=== PATIENT | male | born 1940 | race Caucasian/White ===

== ENCOUNTER 2017-03-17 11:47 | Inpatient (IN) | payer MEDICARE, OTHER ==
--- NOTE | 2017-03-17 12:59 | ED Physician Documentation ---
PD HPI DYSPNEA - Stated complaint Stated Complaint: SOA - Chief complaint Chief Complaint: Resp - History obtained from History obtained from: Patient - History of Present Illness Timing - onset: How many days ago (few) Timing - onset during: Light activity Timing - duration: Days (few) Timing - details: Gradual onset, Still present Inciting event(s): URI (cough, congestion and progressive dyspnea. No noted pedal edema. He had some CHF with congestion and seen at [facility] ED, with some treatment there and discharged to SNF Rehab. He says he felt really good there, with good activity level and breathing. Discharged about a week ago and has had progressive dyspnea. He is from , so has been living in small boat and his truck, and not sleeping well. He had prior history of needing CPAP at night, but stopped it 2-3 years ago and does not have machine still. Does not use home oxygen. Notes from ED [facility] showed adequate sats at 94-96% RA.) Associated symptoms: Cough, Wheezing, Bilateral edema (minimal). No: Fever, Chest pain / discomfort, Palpitations, Diaphoresis Recently seen: Emergency Dept (about a month ago in [facility].) Review of Systems Constitutional: reports: Myalgias, Fatigue. denies: Fever, Chills Nose: reports: Congestion Throat: denies: Sore throat Cardiac: denies: Chest pain / pressure, Palpitations Respiratory: reports: Dyspnea, Cough GI: reports: Nausea, Vomiting, Diarrhea : denies: Dysuria, Frequency Skin: denies: Rash, Lesions Neurologic: reports: Generalized weakness. denies: Focal weakness, Numbness, Near syncope, Headache, Head injury Psychiatric: reports: Insomnia (havins some trouble sleeping due to conditions of living in boat and truck.). denies: Depressed, Hallucinations PD PAST MEDICAL HISTORY - Past Medical History Cardiovascular: Congestive heart failure, Valve disorder Respiratory: COPD Endocrine/Autoimmune: None GI: None - Present Medications Home Medications: Ambulatory Orders Medication Instructions Recorded Confirmed Carvedilol [Coreg] 6.25 mg PO BID 03/17/17 03/17/17 Furosemide [Lasix] 0 mg PO DAILY 03/17/17 03/17/17 Warfarin [Coumadin] 0 mg PO 1400 03/17/17 03/17/17 - Allergies Allergies/Adverse Reactions: Allergies Allergy/AdvReac Type Severity Reaction Status Date / Time No Known Drug Allergies Allergy Verified 03/17/17 11:57 - Family History Family history: reports: Non contributory PD ED PE NORMAL - Vitals Vital signs reviewed: Yes - General General: Alert and oriented X 3, No acute distress, Well developed/nourished - Cardiac Cardiac: RRR, No rub, Other (1/6 murmur at left chest) - Respiratory Respiratory: No: Clear bilaterally (wheezing and decreased tidal volume. Some fine wet sounds in bases.) - Abdomen Abdomen: Soft, Non tender - Male Male : Deferred - Rectal Rectal: Deferred - Back Back: No CVA TTP - Derm Derm: Normal color, Warm and dry - Extremities Extremities: Normal ROM s pain, No calf tenderness / cord, Other (minimal edema in feet and ankles both sides. ) - Neuro Neuro: Alert and oriented X 3, controlled area checker 2-12 intact, No motor deficit, No sensory deficit, Normal speech - Psych Psych: Normal mood, Normal affect Results - Vitals Vitals: Vital Signs - 24 hr 03/17/17 03/17/17 03/17/17 11:48 12:45 13:35 Temperature 36.6 C Heart Rate 70 72 74 Respiratory 20 22 Rate Blood Pressure 127/73 140/108 H O2 Saturation 94 95 03/17/17 03/17/17 03/17/17 13:59 14:25 14:26 Temperature Heart Rate 72 83 Respiratory 19 22 Rate Blood Pressure 117/70 137/74 H O2 Saturation 95 85 L 95 03/17/17 16:34 Temperature Heart Rate 71 Respiratory 20 Rate Blood Pressure 99/60 O2 Saturation 91 L Oxygen O2 Source Nasal cannula - EKG (time done) 12:01 Rate: Rate (enter#) (70) Rhythm: Paced Ischemia: Non specific changes - Labs Labs: Laboratory Tests 03/17/17 03/17/17 03/17/17 12:20 12:20 12:20 WBC 3.3 L RBC 5.42 Hgb 13.4 L Hct 42.8 MCV 79.0 L MCH 24.8 L MCHC 31.4 L RDW 19.9 H Plt Count 126 L MPV 9.1 Neut # 2.2 Lymph # 0.6 L Winston # 0.4 Eos # 0.1 Baso # 0.0 Absolute Nucleated RBC 0.00 Nucleated RBCs 0.0 PT INR Sodium 137 Potassium 3.6 Chloride 100 L Carbon Dioxide 33 H Anion Gap 4.0 L BUN 21 H Creatinine 1.1 Estimated GFR (MDRD) 65 L Glucose 73 Calcium 8.1 L Magnesium 1.7 Total Bilirubin 2.2 H AST 27 ALT 19 Alkaline Phosphatase 108 Troponin I 0.04 B-Natriuretic Peptide Total Protein 6.5 L Albumin 2.9 L Globulin 3.6 Albumin/Globulin Ratio 0.8 L Lipase 26 03/17/17 03/17/17 12:20 12:20 WBC RBC Hgb Hct MCV MCH MCHC RDW Plt Count MPV Neut # Lymph # Winston # Eos # Baso # Absolute Nucleated RBC Nucleated RBCs PT 43.7 H INR 3.8 H Sodium Potassium Chloride Carbon Dioxide Anion Gap BUN Creatinine Estimated GFR (MDRD) Glucose Calcium Magnesium Total Bilirubin AST ALT Alkaline Phosphatase Troponin I B-Natriuretic Peptide 1301 H Total Protein Albumin Globulin Albumin/Globulin Ratio Lipase - Rads (name of study) chest Radiology: Prelim report reviewed (bibasilar infiltrates, and also vascular congestion/small effusion c/w CHF. ) PD MEDICAL DECISION MAKING - ED course Complexity details: reviewed results, re-evaluated patient (Even after neb treatments and feeling okay at rest, with sats to 94% on RA, he does go down to 85-88% on RA just going to bathroom. He needs to be in for ongoing treatment and improvement. ), considered differential (Does seem to be some element of congestive failure on CXR and with elevated BNP. He also has wheezing and improvement with neb treatment, and seems like some element of COPD. He does have lower sats at 80%, that responds to oxygen. He has some cough as well and feeling of malaise, and was in Rehab for about 20 days, just out this week, and is living in small boat and his truck, so concern for allergens such as mold, infections such as bronchitis/pneumonia. ), d/w patient Departure - Departure Disposition: 66 [facility] DC/Xfer Clinical Impression: Hypoxia, Moderate COPD (chronic obstructive pulmonary disease) Dyspnea Qualifiers: Dyspnea type: dyspnea on exertion Qualified Code(s): R06.09 - Other forms of dyspnea CHF (congestive heart failure) Qualifiers: Congestive heart failure type: systolic Congestive heart failure chronicity: acute on chronic Qualified Code(s): I50.23 - Acute on chronic systolic ( congestive) heart failure Condition: Stable Discharge Date/Time: 03/17/17 18:30
[2017-03-17] MEDS ORDERED: IPRATROPIUM/ALBUTEROL 3 ML NEB INH STA (13:17)
[2017-03-17] MEDS ORDERED: DEXAMETHASONE 10 MG/ML VIAL IVP STA (13:19)
[2017-03-17] MEDS ORDERED: CHERRY SYRUP 10 ML UDC PO ONE (13:21)
[2017-03-17] MEDS ORDERED: DEXAMETHASONE 10 MG/ML VIAL ONE (13:21)
[2017-03-17 13:24] LABS: BASOPHILS % (AUTO) 1.2 %; EOSINOPHILS # (AUTO) 0.1 10^3/uL (0.0-0.7); EOSINOPHILS % (AUTO) 2.2 %; HCT - HEMATOCRIT 42.8 % (42.0-52.0); HGB - HEMOGLOBIN 13.4 g/dL (14.0-18.0); LYMPHOCYTES # (AUTO) 0.6 10^3/uL (1.5-3.5); LYMPHOCYTES % (AUTO) 16.9 %; MEAN CORPUSCULAR HEMOGLOBIN 24.8 pg (27.0-31.0); MEAN CORPUSCULAR HGB CONC 31.4 g/dL (32.0-36.0); MEAN PLATELET VOLUME 9.1 fL (7.4-11.4); MONOCYTES # (AUTO) 0.4 10^3/uL (0.0-1.0); NEUTROPHILS # (AUTO) 2.2 10^3/uL (1.5-6.6); NEUTROPHILS % (AUTO) 67.7 %; RED BLOOD COUNT 5.42 10^6/uL (4.70-6.10); RED CELL DISTRIBUTION WIDTH 19.9 % (12.0-15.0); UNCORRECTED WHITE BLOOD COUNT 3.3 x10^3/uL; WHITE BLOOD COUNT 3.3 x10^3/uL (4.8-10.8)
[2017-03-17] MEDS ORDERED: IPRATROPIUM/ALBUTEROL 3 ML NEB INH ONE (13:30)
[2017-03-17 13:33] LABS: INR 3.8 (0.8-1.2); PT - PROTHROMBIN TIME 43.7 secs (9.9-12.6)
[2017-03-17 13:34] LABS: ALBUMIN/GLOBULIN RATIO 0.8 (1.0-2.2); BILIRUBIN,TOTAL 2.2 mg/dL (0.2-1.0); CALCIUM 8.1 mg/dL (8.5-10.3); CREATININE 1.1 mg/dL (0.6-1.2); MAGNESIUM 1.7 mg/dL (1.7-2.8); POTASSIUM 3.6 mmol/L (3.5-5.0); TOTAL PROTEIN 6.5 g/dL (6.7-8.2)
[2017-03-17] MEDS ORDERED: FUROSEMIDE 20 MG/2 ML VIAL IVP STA (14:07)
[2017-03-17] MEDS ORDERED: FUROSEMIDE 20 MG/2 ML VIAL IVP ONE (14:16)
[2017-03-17] MEDS ORDERED: POTASSIUM BICARB 25 MEQ TABLET PO STA (14:53)
[2017-03-17] MEDS ORDERED: POTASSIUM BICARB 25 MEQ TABLET PO ONE (14:58)
--- NOTE | 2017-03-17 15:18 | XRAY Preliminary Report ---
Exam: XR Chest 2 View PA/LAT IMPRESSION: 1. Cardiomegaly with pulmonary vascular congestion and left greater than right pleural effusions galilea cating CHF. 2. Bibasilar opacities, which may represent atelectasis or edema. [facility] SITE ID: [id number]
--- NOTE | 2017-03-17 15:20 | XRAY Report ---
EXAM: CHEST RADIOGRAPHY EXAM DATE: 03/17/2017 02:52 PM. CLINICAL HISTORY: Cough and dyspnea for a week. COMPARISON: None. TECHNIQUE: 2 views. FINDINGS: Lungs/Pleura: Pulmonary vascular engorgement. [id number] left and small right pleural effusion s with adjacent bibasilar opacities. No pneumothorax. Mediastinum: Cardiomegaly. Post TAVR. The aorta is mildly tortuous and contains atherosclerotic calci fications. Other: Right-sided tripolar AICD with atrial and epicardial pacing leads and a ventricular defibrilla ting lead. IMPRESSION: 1. Cardiomegaly with pulmonary vascular congestion and left greater than right pleural effusions galilea cating CHF. 2. Bibasilar opacities, which may represent atelectasis or edema. [facility] Referring Provider Line: [phone] SITE ID: [id number]
[2017-03-17] MEDS ORDERED: cefTRIAXone 1 GM in SODIUM CHLORIDE 0.9% MINIBAG 100 ML IV STA (17:03)
[2017-03-17] MEDS ORDERED: AZITHROMYCIN INJ 500 MG in SODIUM CHLORIDE 0.9% 250 ML IV STA (17:03)
[2017-03-17] MEDS ORDERED: cefTRIAXone 1 GM VIAL ONE (17:06)
[2017-03-17] MEDS ORDERED: ACETAMINOPHEN 325 MG TABLET PO PRN (17:40)
[2017-03-17] MEDS ORDERED: SODIUM CHLORIDE FLUSH 0.9% 10 ML SYRINGE IVP PRN (17:40)
[2017-03-17] MEDS ORDERED: ONDANSETRON ODT 4 MG TABLET TL PRN (17:40)
--- NOTE | 2017-03-17 18:07 | HISTORY & PHYSICAL EXAMINATION ---
Chief Complaint - Chief Complaint Chief Complaint: Cough History of Present Illness - Admitted From Admitted From:: ED - History Obtained From Records Reviewed: yes History obtained from: Patient Exam Limitations: None - History of Present Illness Pain/Problem Location Description: Cough with dyspnea, PND and orthopnea Severity: moderate Duration: 5 days HPI Comment/Other: Pt with a known HX of CAD, AVR, CM with LVEF reports as 20-25% CHF, AICD and multiple admissions recently for dyspnea. Pt states he has a cough for 5 days. He reports a productive cough with yellowish sputum. He denies fever or chills over the last week since onset of symptoms. His does report PND and orthopnea with increased congestion in the AM upon waking. He denies recent weight changes, edema, or abdominal distension. He was treated recently with CHF exacerbation then sepnt a month in SNF> Since discharge he has declined with increasing weakness. HE noted the weakness is worse the last few days. He also reports dizziness especially with position changes. BNP was elevated to 1301 in the ED. His WBC was low and he was not febrile. He denies chest pain or anginal SX. He has no reports of palpitations. He stated his AVR was 16 months ago and he was told it is failing now. Review of Systems - Constitutional Constitutional: reports: Fatigue, Malaise, Weakness, Poor appetite. denies: Fever, Chills, Diaphoresis, Night sweats, Weight gain - Eyes Eyes: denies: Pain, Irritation, Blurred vision, Spots in vision - Ears, Nose & Throat Ears, Nose & Throat: denies: Ear pain, Hearing loss, Nasal congestion - Cardiovascular Cariovascular: reports: Lightheadedness, Exertional dyspnea, Decr. exercise tolerance, Orthopnea. denies: Irregular heart rate, Palpitations, Chest pain, Syncope - Respiratory Respiratory: reports: Cough, Sputum production, Wheezing, Orthopnea, SOB at rest , SOB with exertion. denies: Hemoptysis - Gastrointestinal Gastrointestinal: denies: Abdominal pain, Abdominal distention, Constipation, Diarrhea - Genitourinary Genitourinary: denies: Dysuria, Frequency, Urgency - Musculoskeletal Musculoskeletal: reports: Muscle weakness. denies: Muscle pain, Back pain - Integumentary Integumentary: denies: Rash, Pruritis - Neurological Neurological: reports: General weakness, Dizziness. denies: Focal weakness, Headache - Psychiatric Psychiatric: denies: Depression - Endocrine Endocrine: denies: Polyuria, Intolerance to heat - Hematologic/Lymphatic Hematologic/Lymphatic: denies: Bruising, Petechiae History - Past Medical History Cardiovascular: reports: Congestive heart failure, Hypertension, High cholesterol, Coronary artery disease, CT, Atrial fibrillation Respiratory: reports: Pneumonia. denies: COPD, Cystic fibrosis Neuro: denies: Alzhiemer's, Dementia, CVA Endocrine/Autoimmune: denies: Type 1 diabetes, Type 2 diabetes GI: reports: GERD, Crohn's disease : reports: None HEENT: reports: None Psych: reports: None Musculoskeletal: denies: Fibromyalgia, Paraplegia, Quadriplegia, Hemiplegia Derm: reports: None - Past Surgical History Cardiovascular: reports: Valve replacement, AICD, Cardiac catheterization - Family & Social History Family History Comment/Other: Reviewed and noncontributory Living arrangement: At home Living Situation: Alone - Substance History Abuse: Recurrent use of substance despite neg consequences: NONE - POLST POLST Status: Full Code Meds/Allgy - Home Medications Home Medications: Ambulatory Orders Medication Instructions Recorded Confirmed Carvedilol [Coreg] 6.25 mg PO BID 03/17/17 03/17/17 Furosemide [Lasix] 0 mg PO DAILY 03/17/17 03/17/17 Warfarin [Coumadin] 0 mg PO 1400 03/17/17 03/17/17 - Allergies Allergies/Adverse Reactions: Allergies Allergy/AdvReac Type Severity Reaction Status Date / Time No Known Drug Allergies Allergy Verified 03/17/17 11:57 Exam - Vital Signs Reviewed Vital Signs: Yes Vital Signs: Vital Signs x48h Temp Pulse Resp BP Pulse Ox 03/17/17 17:57 70 18 141/74 H 95 03/17/17 16:34 71 20 99/60 91 L 03/17/17 14:26 83 22 137/74 H 95 03/17/17 14:25 85 L 03/17/17 13:59 72 19 117/70 95 03/17/17 13:35 74 22 03/17/17 12:45 72 140/108 H 95 03/17/17 11:48 36.6 C 70 20 127/73 94 - Physical Exam General Appearance: positive: No acute distress, Alert Eyes Bilateral: positive: Normal inspection, PERRL, EOMI, Other (Arcus sinilis) ENT: positive: No signs of dehydration, Other (Poor dentician) Neck: positive: Nml inspection, No JVD. negative: Carotid bruit Respiratory: positive: Chest non-tender, Wheezes, Rales, Rhonchi Cardiovascular: positive: Regular rate & rhythm, Systolic murmur. negative: PMI displaced laterally, Diastolic murmur, Gallop/S3 Peripheral Pulses: positive: 2+ Abdomen: positive: Non-tender, Nml bowel sounds, No distention Back: positive: Nml inspection Skin: positive: Color nml, No rash, Warm, Dry Extremities: positive: Non-tender, Full ROM Neurologic/Psychiatric: positive: Oriented x3, CN's nml (2-12) Conclusion/Plan - Problem List (1) CHF (congestive heart failure) Conclusion/Plan: Ischemic cardiomyoathy with LVEF 20-25%/ Pt with Sx of cough, PND, orthopnea, LIANG all consistent with CHF exacerbation. He was also found to have an elevated BNP of 1301 and CXR with CHF pattern. It is possible that he has a pneumonia given his discolored sputum production, weakness, fatigue and malaise. Plan: PT will be continued on ABX. Checking a lactic acid level today. Will hold off on diuresis until more information is back. RT evaluation and DuoNebs are orderd. I suspect a combination of CHF and pneumonia as etiology for presentation . Qualifiers: Congestive heart failure type: systolic Congestive heart failure chronicity : acute on chronic Qualified Code(s): I50.23 - Acute on chronic systolic ( congestive) heart failure (2) Dyspnea Qualifiers: Dyspnea type: dyspnea on exertion Qualified Code(s): R06.09 - Other forms of dyspnea (4) Pneumonia Conclusion/Plan: Pt presentation is mix symptoms for CHF and pneumonia. CXR more consistent with a CHF presentation. He does have weakness, fatigue, dizziness which could be from infection however he is afebrile with low WBC count. Plan: see CHF Will treat with ABX for now (5) CAD (coronary artery disease) Conclusion/Plan: Stable CAD. Does not appear to be on full medication package. He denies anginal Sx. Plan: Monitor for changes. No ischemic workup needed. Qualifiers: Coronary Disease-Associated Artery/Lesion type: [place] artery Associated angina: without angina (6) Cardiomyopathy Conclusion/Plan: Ischemic etiology with LVEF 20-25%. PT is not on optimal goal directed medical therapy at this time. PT has AICD in situ. Plan: continue home medications. PT should follow up with cardiology for further titration of cardiomyopathy medications. Qualifiers: Cardiomyopathy type: ischemic Qualified Code(s): I25.5 - Ischemic cardiomyopathy (7) AICD (automatic cardioverter/defibrillator) present Conclusion/Plan: Pt denies ICD delivered therapies. HE should followup with cardiology as directed - Lab Results Fish Bones: 03/17/17 12:20 03/17/17 12:20 - EKG Results EKG Interpreted Independently: Yes Issues/Core Measures - Anticipated LOS Anticipated Stay Length: 2 or more midnights - DVT/VTE - Prophylaxis VTE/DVT Device ordered at admit?: No Not Ordered - Medical Reason: Not indicated (PT therapeutic on warfarin) VTE/DVT Prophylaxis med ordered at admit?: No Not Ordered - Medical Reason: Not indicated (PT on warfarin) - Stroke - Rehab Assessment Rehab services assessment to be ordered?: No Not Ordered - Medical Reason: Not indicated
[2017-03-17] MEDS: IPRATROPIUM/ALBUTEROL 3 ML NEB INH PRN (20:54)
[2017-03-17] MEDS: CARVEDILOL 3.125 MG TABLET PO SCH (21:09)
[2017-03-17] MEDS: TEMAZEPAM 15 MG CAPSULE PO PRN (21:09)
[2017-03-17] MEDS: SODIUM CHLORIDE FLUSH 0.9% 10 ML SYRINGE IVP SCH (21:09)
[2017-03-18] MEDS: BENZOCAINE/MENTHOL LOZENGE MM PRN ×2 (00:42→23:36)
[2017-03-18 05:38] LABS: INR 3.5 (0.8-1.2); PT - PROTHROMBIN TIME 40.3 secs (9.9-12.6)
[2017-03-18 05:39] LABS: CALCIUM 8.4 mg/dL (8.5-10.3); POTASSIUM 5.5 mmol/L (3.5-5.0)
[2017-03-18 05:51] LABS: HCT - HEMATOCRIT 43.8 % (42.0-52.0); HGB - HEMOGLOBIN 13.6 g/dL (14.0-18.0); MEAN CORPUSCULAR HEMOGLOBIN 24.8 pg (27.0-31.0); MEAN CORPUSCULAR HGB CONC 31.1 g/dL (32.0-36.0); MEAN CORPUSCULAR VOLUME 79.9 fL (80.0-94.0); MEAN PLATELET VOLUME 9.2 fL (7.4-11.4); RED BLOOD COUNT 5.48 10^6/uL (4.70-6.10); RED CELL DISTRIBUTION WIDTH 19.9 % (12.0-15.0); WHITE BLOOD COUNT 3.4 x10^3/uL (4.8-10.8)
[2017-03-18] MEDS: SODIUM CHLORIDE FLUSH 0.9% 10 ML SYRINGE IVP SCH ×4 (06:02→20:13)
[2017-03-18] MEDS: WARFARIN 1 MG TABLET PO SCH (07:57)
[2017-03-18] MEDS: CARVEDILOL 3.125 MG TABLET PO SCH ×2 (09:35→20:12)
[2017-03-18] MEDS: IPRATROPIUM/ALBUTEROL 3 ML NEB INH PRN ×3 (09:35→20:22)
[2017-03-18] MEDS: POLYETHYLENE GLYCOL 3350 17 GM PACKET PO SCH (09:35)
[2017-03-18] MEDS: cefTRIAXone 1 GM in SODIUM CHLORIDE 0.9% MINIBAG 100 ML IV SCH (09:37)
[2017-03-18] MEDS: AZITHROMYCIN INJ 500 MG in SODIUM CHLORIDE 0.9% 250 ML IV SCH (10:42)
[2017-03-18] MEDS ORDERED: FUROSEMIDE 40 MG/4 ML VIAL IVP ONE (12:00)
--- NOTE | 2017-03-18 13:52 | PROVIDER PROGRESS NOTE ---
Assessment/Plan - Problem List (1) CHF (congestive heart failure) Qualifiers: Congestive heart failure type: systolic Congestive heart failure chronicity : acute on chronic Qualified Code(s): I50.23 - Acute on chronic systolic ( congestive) heart failure Assessment/Plan: Breathing improved with ABX treatment of suspected CAP. PT is tolerating medications. Plan: Lasix 40 mg IV X1 today. Monitor for sx improvement. Continue home medications. Will add ACEi tomorrow if BP remains stable. PT would benefit form Aldactone given sever LV failure and hypokalemia. (2) Dyspnea Qualifiers: Dyspnea type: dyspnea on exertion Qualified Code(s): R06.09 - Other forms of dyspnea Assessment/Plan: Multifactorial including Pneumonia and CHF. improved with ABX therapy however he has continues PND and orthopnea. Plan: Continue ABX. Will give single dose IV Lasix (3) S/P AVR Assessment/Plan: On warfarin. Will Continue OAC (4) Pneumonia Assessment/Plan: Improved on antibiotics. Afebrile over night. No complaints of fever or chills. Plan: Continue antibiotics. Will diurese today. Anticipate home in 48 hours (5) CAD (coronary artery disease) Assessment/Plan: Stable without anginal Sx to report. Plan No indication for ischemic workup. Continue home medications. Restart Statin (6) Cardiomyopathy Assessment/Plan: LVEF 20%. Not currently on optimal medical therapy BP will allow for addition of LYNSEY and Aldactone. Will plan to restart this admission. Pt needs close followup for medication titration to get to optimal goal directed medical therapy. Compliance has been an issue in the past and will likely be an issue in the future as well. (7) AICD (automatic cardioverter/defibrillator) present Assessment/Plan: Recommended he have follow up with cardiology for device interrogation (8) Hypokalemia Assessment/Plan: K 3.4 today. Daily potassium added today with additional dose plus replacing Mag - Current Meds Current Meds: Current Medications Generic Name Dose Route Start Last Admin Trade Name Freq PRN Reason Stop Dose Admin Albuterol/Ipratropium 3 ml 03/17/17 17:50 03/18/17 09:35 Duoneb INH 3 ml Q4HR PRN Administration Wheezing Carvedilol 6.25 mg 03/17/17 21:00 03/18/17 09:35 Coreg PO 6.25 mg BID JESSICA Administration Azithromycin 500 mg/ Sodium 250 mls @ 250 mls/hr 03/18/17 10:00 03/18/17 10:42 Chloride IV 250 mls/hr DAILY@1000 JESSICA Administration Ceftriaxone Sodium 1 gm/ 100 mls @ 200 mls/hr 03/18/17 09:00 03/18/17 09:37 Sodium Chloride IV 200 mls/hr DAILY JESSICA Administration Polyethylene Glycol 17 gm 03/18/17 09:00 03/18/17 09:35 Miralax PO 17 gm DAILY JESSICA Administration Sodium Chloride 10 ml 03/17/17 22:00 03/18/17 11:57 Normal Saline Flush 0.9% IVP 10 ml Q8HR JESSICA Administration Temazepam 15 mg 03/17/17 17:40 03/17/17 21:09 Restoril PO 15 mg QPM PRN Administration Insomnia Throat Lozenges 1 lozenge 03/17/17 23:15 03/18/17 00:42 Cepacol MM 1 lozenge Q2HR PRN Administration Throat pain Warfarin Sodium 1 mg 03/18/17 14:00 03/18/17 07:57 Coumadin PO Not Given QDWARFARIN JESSICA - Lab Result Lab results reviewed: Yes Fish Bone Diagrams: 03/18/17 05:17 03/18/17 05:17 - Diagnostic Imaging Results Diagnostic Imaging Results: positive: Final report reviewed - Additional Planning Condition/Complexity: Improved My Orders: My Active Orders 03/17/17 17:50 Ipratropium/Albuterol [Duoneb] 3 ml INH Q4HR PRN 03/17/17 20:55 RT [Nebulizer/MDI Tx.] [RC] .q4prn 03/17/17 21:00 Carvedilol [Coreg] 6.25 mg PO BID 03/17/17 23:15 Benzocaine/Menthol [Cepacol] 1 lozenge MM Q2HR PRN 03/18/17 09:00 cefTRIAXone [Rocephin] 1 gm Sodium Chloride 0.9% Minibag [Normal Saline 0.9% Minibag] 100 ml IV DAILY 03/18/17 10:00 Azithromycin Inj [Zithromax Inj] 500 mg Sodium Chloride 0.9% [Normal Saline 0.9%] 250 ml IV DAILY@1000 03/18/17 14:00 Sertraline HCl [Zoloft] 100 mg PO DAILY Warfarin [Coumadin] 1 mg PO QDWARFARIN 03/18/17 21:00 Atorvastatin Calcium [Lipitor] 80 mg PO QPM 03/19/17 05:00 PT WITH INR [COAG] DAILYLAB 03/19/17 09:00 Aspirin EC [Ecotrin] 81 mg PO DAILY 03/20/17 05:00 PT WITH INR [COAG] DAILYLAB 03/21/17 05:00 PT WITH INR [COAG] DAILYLAB 03/22/17 05:00 PT WITH INR [COAG] DAILYLAB 03/25/17 08:00 Magnesium Oxide [Mag Ox] 400 mg PO Q7D@0800 Plan Discussed with:: Patient Time Spent: 15-30 minutes Subjective - Subjective Patient Reports: Feeling Better (Breathing has improved. He denies fever or chills over night. No new complaints. No chest pain. ORthopnea and PND remian but seem better.) Nursing Reports: No Complaints Objective Vital Signs: Vital Signs - 24 hr 03/17/17 03/17/17 03/17/17 17:57 19:23 20:55 Temperature 36.8 C Heart Rate 70 73 Heart Rate [ 70 Brachial] Respiratory 18 20 18 Rate Blood Pressure 141/74 H Blood Pressure 111/76 [Left Brachial artery] Blood Pressure [Right Brachial artery] O2 Saturation 95 93 03/18/17 03/18/17 03/18/17 00:35 07:43 09:35 Temperature 37.1 C Heart Rate 69 Heart Rate [ 70 70 Brachial] Respiratory 18 16 16 Rate Blood Pressure Blood Pressure [Left Brachial artery] Blood Pressure 147/78 H 146/77 H [Right Brachial artery] O2 Saturation 95 97 03/18/17 10:27 Temperature 36.4 C L Heart Rate Heart Rate [ Brachial] Respiratory Rate Blood Pressure Blood Pressure [Left Brachial artery] Blood Pressure [Right Brachial artery] O2 Saturation Oxygen O2 Source Nasal cannula I&O (Last 24 Hrs): Intake and Output Totals x24h 03/16/17 03/17/17 03/18/17 23:59 23:59 23:59 Intake Total 740 690 Output Total 750 775 Balance -10 -85 General: Alert, Oriented x3, No acute distress Neck: Other (JVD >8) Neuro: Alert, CN 2-12 Grossly Intact Cardiovascular: Regular rate, Normal S1, Normal S2, Other (2/6 NASIMA heard best at RUSB. Does not radiate to carotids.) Respiratory: Chest non-tender, No respiratory distress, Other (Breath sounds diminished. Bilateral wheezes present. Fine crackles.) Abdomen: Normal bowel sounds Extremities: No clubbing, No cyanosis, No edema - Results Results: Laboratory Results WBC 3.4 x10^3/uL (4.8-10.8) L 03/18/17 05:17 RBC 5.48 10^6/uL (4.70-6.10) 03/18/17 05:17 Hgb 13.6 g/dL (14.0-18.0) L 03/18/17 05:17 Hct 43.8 % (42.0-52.0) 03/18/17 05:17 MCV 79.9 fL (80.0-94.0) L 03/18/17 05:17 MCH 24.8 pg (27.0-31.0) L 03/18/17 05:17 MCHC 31.1 g/dL (32.0-36.0) L 03/18/17 05:17 RDW 19.9 % (12.0-15.0) H 03/18/17 05:17 Plt Count 112 10^3/uL (130-450) L 03/18/17 05:17 MPV 9.2 fL (7.4-11.4) 03/18/17 05:17 Neut # 2.2 10^3/uL (1.5-6.6) 03/17/17 12:20 Lymph # 0.6 10^3/uL (1.5-3.5) L 03/17/17 12:20 Villalba # 0.4 10^3/uL (0.0-1.0) 03/17/17 12:20 Eos # 0.1 10^3/uL (0.0-0.7) 03/17/17 12:20 Baso # 0.0 10^3/uL (0.0-0.1) 03/17/17 12:20 Absolute Nucleated RBC 0.00 x10^3/uL 03/17/17 12:20 Nucleated RBCs 0.0 /100WBC 03/17/17 12:20 PT 40.3 secs (9.9-12.6) H 03/18/17 05:17 INR 3.5 (0.8-1.2) H 03/18/17 05:17 Sodium 139 mmol/L (135-145) 03/18/17 05:17 Potassium 5.5 mmol/L (3.5-5.0) H 03/18/17 05:17 Chloride 103 mmol/L (101-111) 03/18/17 05:17 Carbon Dioxide 31 mmol/L (21-32) 03/18/17 05:17 Anion Gap 5.0 (6-13) L 03/18/17 05:17 BUN 25 mg/dL (6-20) H 03/18/17 05:17 Creatinine 1.0 mg/dL (0.6-1.2) 03/18/17 05:17 Estimated GFR (MDRD) 73 (>89) L 03/18/17 05:17 Glucose 114 mg/dL (70-100) H 03/18/17 05:17 Lactic Acid 1.8 mmol/L (0.5-2.2) 03/17/17 18:20 Calcium 8.4 mg/dL (8.5-10.3) L 03/18/17 05:17 Magnesium 1.7 mg/dL (1.7-2.8) 03/17/17 12:20 Total Bilirubin 2.2 mg/dL (0.2-1.0) H 03/17/17 12:20 AST 27 IU/L (10-42) 03/17/17 12:20 ALT 19 IU/L (10-60) 03/17/17 12:20 Alkaline Phosphatase 108 IU/L (42-121) 03/17/17 12:20 Troponin I 0.04 ng/mL (<0.49) 03/17/17 12:20 B-Natriuretic Peptide 1301 pg/mL (5-100) H 03/17/17 12:20 Total Protein 6.5 g/dL (6.7-8.2) L 03/17/17 12:20 Albumin 2.9 g/dL (3.2-5.5) L 03/17/17 12:20 Globulin 3.6 g/dL (2.1-4.2) 03/17/17 12:20 Albumin/Globulin Ratio 0.8 (1.0-2.2) L 03/17/17 12:20 Lipase 26 U/L (22-51) 03/17/17 12:20
[2017-03-18] MEDS: SERTRALINE 50 MG TABLET PO SCH (14:20)
[2017-03-18] MEDS: ATORVASTATIN 40 MG TABLET PO SCH (20:12)
[2017-03-18] MEDS: TEMAZEPAM 15 MG CAPSULE PO PRN (22:00)
[2017-03-19] MEDS: SODIUM CHLORIDE FLUSH 0.9% 10 ML SYRINGE IVP SCH ×3 (05:49→21:32)
[2017-03-19 06:15] LABS: INR 2.7 (0.8-1.2); PT - PROTHROMBIN TIME 30.8 secs (9.9-12.6)
[2017-03-19] MEDS: IPRATROPIUM/ALBUTEROL 3 ML NEB INH PRN ×2 (07:42→13:30)
--- NOTE | 2017-03-19 08:47 | PROVIDER PROGRESS NOTE ---
Assessment/Plan - Problem List (1) CHF (congestive heart failure) Qualifiers: Congestive heart failure type: systolic Congestive heart failure chronicity : acute on chronic Qualified Code(s): I50.23 - Acute on chronic systolic ( congestive) heart failure Assessment/Plan: PND and orthopnea improved after IV lasix yesterday. He did have 1 episode of PND last night. Tolerating medications. Plan: 40 mg IV lasix today. Add Aldactone. and low dose ACEi today. continue nebs PRN. Concern with compliance on discharge. (2) Dyspnea Qualifiers: Dyspnea type: dyspnea on exertion Qualified Code(s): R06.09 - Other forms of dyspnea Assessment/Plan: Improved with treatment of CHF and pneumonia. Will continue treatment plan (3) S/P AVR Assessment/Plan: On warfarin. INR 2.7 today. Coumadin 5 mg (4) Pneumonia Assessment/Plan: Improved on ABX. No longer complaining of weakness, muscle aches. Plan: Continue Antibiotics. Anticipate discharge 1-2 days (5) CAD (coronary artery disease) Qualifiers: Coronary Disease-Associated Artery/Lesion type: [place] artery Assessment/Plan: Denies anginal SX. Plan: Continue cardiac medications. Add ACEi. Encourage cardiology follow up after discharge (6) Cardiomyopathy Assessment/Plan: LVEF 20%. Not currently on optimal medical therapy BP will allow for addition of LYNSEY and Aldactone. Will plan to restart this admission. Pt needs close followup for medication titration to get to optimal goal directed medical therapy. Compliance has been an issue in the past and will likely be an issue in the future as well. Add Lisinopril 5 mg today./ Will add Aldactone if his potassium level is normal (7) AICD (automatic cardioverter/defibrillator) present Assessment/Plan: No ICD delivered therapies while admitted. Encouraged follow up with cardiology fro ICD interrogation (8) Hypokalemia Assessment/Plan: Potassium 5.5 after replacement and be for IV Lasix. Will recheck today - Current Meds Current Meds: Current Medications Generic Name Dose Route Start Last Admin Trade Name Freq PRN Reason Stop Dose Admin Albuterol/Ipratropium 3 ml 03/18/17 14:14 03/19/17 07:42 Duoneb INH 3 ml RTQID PRN Administration Shortness of Air/Wheezing Atorvastatin Calcium 80 mg 03/18/17 21:00 03/18/17 20:12 Lipitor PO 80 mg QPM JESSICA Administration Carvedilol 6.25 mg 03/17/17 21:00 03/18/17 20:12 Coreg PO 6.25 mg BID JESSICA Administration Azithromycin 500 mg/ Sodium 250 mls @ 250 mls/hr 03/18/17 10:00 03/18/17 10:42 Chloride IV 250 mls/hr DAILY@1000 JESSICA Administration Ceftriaxone Sodium 1 gm/ 100 mls @ 200 mls/hr 03/18/17 09:00 03/18/17 09:37 Sodium Chloride IV 200 mls/hr DAILY JESSICA Administration Polyethylene Glycol 17 gm 03/18/17 09:00 03/18/17 09:35 Miralax PO 17 gm DAILY JESSICA Administration Sertraline HCl 100 mg 03/18/17 14:00 03/18/17 14:20 Zoloft PO 100 mg DAILY JESSICA Administration Sodium Chloride 10 ml 03/17/17 22:00 03/19/17 05:49 Normal Saline Flush 0.9% IVP 10 ml Q8HR JESSICA Administration Temazepam 15 mg 03/17/17 17:40 03/18/17 22:00 Restoril PO 15 mg QPM PRN Administration Insomnia Throat Lozenges 1 lozenge 03/17/17 23:15 03/18/17 23:36 Cepacol MM 1 lozenge Q2HR PRN Administration Throat pain Warfarin Sodium 1 mg 03/18/17 14:00 03/18/17 07:57 Coumadin PO Not Given QDWARFARIN JESSICA - Lab Result Lab results reviewed: Yes Fish Bone Diagrams: 03/18/17 05:17 03/18/17 05:17 - Additional Planning Condition/Complexity: Improved My Orders: My Active Orders 03/18/17 09:00 cefTRIAXone [Rocephin] 1 gm Sodium Chloride 0.9% Minibag [Normal Saline 0.9% Minibag] 100 ml IV DAILY 03/18/17 10:00 Azithromycin Inj [Zithromax Inj] 500 mg Sodium Chloride 0.9% [Normal Saline 0.9%] 250 ml IV DAILY@1000 03/18/17 14:00 Sertraline [Zoloft] 100 mg PO DAILY Warfarin [Coumadin] 1 mg PO QDWARFARIN 03/18/17 14:14 Ipratropium/Albuterol [Duoneb] 3 ml INH RTQID PRN 03/18/17 21:00 Atorvastatin [Lipitor] 80 mg PO QPM 03/19/17 09:00 Aspirin EC [Ecotrin] 81 mg PO DAILY FUROSEMIDE INJ 40mg VIAL [LASIX INJ 40 mg VIAL] 40 mg IVP ONCE 03/19/17 14:00 Warfarin [Coumadin] 5 mg PO QDWARFARIN 03/20/17 05:00 PT WITH INR [COAG] DAILYLAB 03/21/17 05:00 PT WITH INR [COAG] DAILYLAB 03/22/17 05:00 PT WITH INR [COAG] DAILYLAB 03/25/17 08:00 Magnesium Oxide [Mag Ox] 400 mg PO Q7D@0800 Time Spent: 15-30 minutes Subjective - Subjective Patient Reports: Feeling Better (Feels his breathing has improved. He had 1 episode of dyspnea that woke him from sleep and he had to sit up to breath. This improved quickly and did not return. No chest pain or anginal Sx. cough is better.) Nursing Reports: No Complaints Objective Vital Signs: Vital Signs - 24 hr 03/18/17 03/18/17 03/18/17 09:35 10:27 16:00 Temperature 36.4 C L Heart Rate 69 76 Heart Rate [ Brachial] Respiratory 16 16 Rate Blood Pressure [Left Brachial artery] Blood Pressure [Right Brachial artery] O2 Saturation 03/18/17 03/18/17 03/18/17 16:15 20:13 20:14 Temperature 36.7 C Heart Rate Heart Rate [ 70 70 Brachial] Respiratory 20 14 Rate Blood Pressure 108/62 102/62 [Left Brachial artery] Blood Pressure [Right Brachial artery] O2 Saturation 96 91 L 93 03/18/17 03/19/17 20:25 00:00 Temperature 36.8 C Heart Rate 75 Heart Rate [ 70 Brachial] Respiratory 18 18 Rate Blood Pressure [Left Brachial artery] Blood Pressure 105/68 [Right Brachial artery] O2 Saturation 94 Oxygen O2 Source Nasal cannula I&O (Last 24 Hrs): Intake and Output Totals x24h 03/17/17 03/18/17 03/19/17 23:59 23:59 23:59 Intake Total 740 1310 200 Output Total 750 3600 250 Balance -10 -2290 -50 General: Alert, Oriented x3 HEENT: Atraumatic, PERRLA, EOMI Neck: No JVD Neuro: Alert, CN 2-12 Grossly Intact Cardiovascular: Regular rate, Normal S1, Normal S2 Respiratory: No respiratory distress, Rales (Bilateral bases.), Other (Improved aeration on exam) Abdomen: Normal bowel sounds Extremities: No clubbing, No edema, Normal pulses Skin: No breakdown, No significant lesion - Results Results: Laboratory Results WBC 3.4 x10^3/uL (4.8-10.8) L 03/18/17 05:17 RBC 5.48 10^6/uL (4.70-6.10) 03/18/17 05:17 Hgb 13.6 g/dL (14.0-18.0) L 03/18/17 05:17 Hct 43.8 % (42.0-52.0) 03/18/17 05:17 MCV 79.9 fL (80.0-94.0) L 03/18/17 05:17 MCH 24.8 pg (27.0-31.0) L 03/18/17 05:17 MCHC 31.1 g/dL (32.0-36.0) L 03/18/17 05:17 RDW 19.9 % (12.0-15.0) H 03/18/17 05:17 Plt Count 112 10^3/uL (130-450) L 03/18/17 05:17 MPV 9.2 fL (7.4-11.4) 03/18/17 05:17 Neut # 2.2 10^3/uL (1.5-6.6) 03/17/17 12:20 Lymph # 0.6 10^3/uL (1.5-3.5) L 03/17/17 12:20 [place] # 0.4 10^3/uL (0.0-1.0) 03/17/17 12:20 Eos # 0.1 10^3/uL (0.0-0.7) 03/17/17 12:20 Baso # 0.0 10^3/uL (0.0-0.1) 03/17/17 12:20 Absolute Nucleated RBC 0.00 x10^3/uL 03/17/17 12:20 Nucleated RBCs 0.0 /100WBC 03/17/17 12:20 PT 30.8 secs (9.9-12.6) H 03/19/17 05:30 INR 2.7 (0.8-1.2) H 03/19/17 05:30 Sodium 139 mmol/L (135-145) 03/18/17 05:17 Potassium 5.5 mmol/L (3.5-5.0) H 03/18/17 05:17 Chloride 103 mmol/L (101-111) 03/18/17 05:17 Carbon Dioxide 31 mmol/L (21-32) 03/18/17 05:17 Anion Gap 5.0 (6-13) L 03/18/17 05:17 BUN 25 mg/dL (6-20) H 03/18/17 05:17 Creatinine 1.0 mg/dL (0.6-1.2) 03/18/17 05:17 Estimated GFR (MDRD) 73 (>89) L 03/18/17 05:17 Glucose 114 mg/dL (70-100) H 03/18/17 05:17 Lactic Acid 1.8 mmol/L (0.5-2.2) 03/17/17 18:20 Calcium 8.4 mg/dL (8.5-10.3) L 03/18/17 05:17 Magnesium 1.7 mg/dL (1.7-2.8) 03/17/17 12:20 Total Bilirubin 2.2 mg/dL (0.2-1.0) H 03/17/17 12:20 AST 27 IU/L (10-42) 03/17/17 12:20 ALT 19 IU/L (10-60) 03/17/17 12:20 Alkaline Phosphatase 108 IU/L (42-121) 03/17/17 12:20 Troponin I 0.04 ng/mL (<0.49) 03/17/17 12:20 B-Natriuretic Peptide 1301 pg/mL (5-100) H 03/17/17 12:20 Total Protein 6.5 g/dL (6.7-8.2) L 03/17/17 12:20 Albumin 2.9 g/dL (3.2-5.5) L 03/17/17 12:20 Globulin 3.6 g/dL (2.1-4.2) 03/17/17 12:20 Albumin/Globulin Ratio 0.8 (1.0-2.2) L 03/17/17 12:20 Lipase 26 U/L (22-51) 03/17/17 12:20
[2017-03-19] MEDS ORDERED: FUROSEMIDE 40 MG/4 ML VIAL IVP SCH (09:00)
[2017-03-19 09:42] LABS: CALCIUM 8.2 mg/dL (8.5-10.3); POTASSIUM 4.1 mmol/L (3.5-5.0)
[2017-03-19] MEDS: cefTRIAXone 1 GM in SODIUM CHLORIDE 0.9% MINIBAG 100 ML IV SCH (11:01)
[2017-03-19] MEDS: CARVEDILOL 3.125 MG TABLET PO SCH ×2 (11:03→21:31)
[2017-03-19] MEDS: SERTRALINE 50 MG TABLET PO SCH (11:03)
[2017-03-19] MEDS: LISINOPRIL 5 MG TABLET PO SCH (11:03)
[2017-03-19] MEDS: ASPIRIN EC 81 MG TABLET PO SCH (11:04)
[2017-03-19] MEDS: POLYETHYLENE GLYCOL 3350 17 GM PACKET PO SCH (11:04)
[2017-03-19] MEDS: AZITHROMYCIN INJ 500 MG in SODIUM CHLORIDE 0.9% 250 ML IV SCH (11:28)
[2017-03-19] MEDS: WARFARIN 5 MG TABLET PO SCH (14:35)
[2017-03-19] MEDS: WARFARIN 1 MG TABLET PO SCH (14:36)
[2017-03-19] MEDS: ATORVASTATIN 40 MG TABLET PO SCH (21:32)
[2017-03-19] MEDS: TEMAZEPAM 15 MG CAPSULE PO PRN (21:32)
[2017-03-19] MEDS: BENZOCAINE/MENTHOL LOZENGE MM PRN (22:35)
[2017-03-20 05:53] LABS: INR 2.2 (0.8-1.2); PT - PROTHROMBIN TIME 25.3 secs (9.9-12.6)
[2017-03-20] MEDS: SODIUM CHLORIDE FLUSH 0.9% 10 ML SYRINGE IVP SCH ×3 (06:01→15:58)
[2017-03-20] MEDS: IPRATROPIUM/ALBUTEROL 3 ML NEB INH PRN (08:00)
[2017-03-20] MEDS: cefTRIAXone 1 GM in SODIUM CHLORIDE 0.9% MINIBAG 100 ML IV SCH (08:54)
[2017-03-20] MEDS: LISINOPRIL 5 MG TABLET PO SCH (08:55)
[2017-03-20] MEDS: SERTRALINE 50 MG TABLET PO SCH (08:55)
[2017-03-20] MEDS: ASPIRIN EC 81 MG TABLET PO SCH (08:56)
[2017-03-20] MEDS: CARVEDILOL 3.125 MG TABLET PO SCH ×2 (09:02→21:43)
[2017-03-20] MEDS: BENZOCAINE/MENTHOL LOZENGE MM PRN (09:17)
[2017-03-20] MEDS: POLYETHYLENE GLYCOL 3350 17 GM PACKET PO SCH (10:14)
[2017-03-20] MEDS: AZITHROMYCIN INJ 500 MG in SODIUM CHLORIDE 0.9% 250 ML IV SCH (10:15)
--- NOTE | 2017-03-20 12:31 | Discharge Plan ---
Discharge Plan Disposition: 01 Home, Self Care Condition: Stable Prescriptions: Carvedilol [Coreg] 6.25 mg PO BID #60 tablet Atorvastatin Calcium [Lipitor] 80 mg PO QPM #30 tablet Lisinopril [Zestril] 5 mg PO DAILY #30 tablet Diet: Low Sodium Shower Restrictions: No Driving Restrictions: No Weight Bearing: Full Weight No Smoking: If you smoke, Please STOP! Call for help. Follow-up with: Lilliam Eid MD [Primary Care Provider] - 2 Weeks
[2017-03-20] MEDS: WARFARIN 1 MG TABLET PO SCH (14:51)
[2017-03-20] MEDS: WARFARIN 5 MG TABLET PO SCH (14:51)
--- NOTE | 2017-03-20 14:52 | PROVIDER PROGRESS NOTE ---
Assessment/Plan - Problem List (1) CHF (congestive heart failure) Qualifiers: Congestive heart failure type: systolic Congestive heart failure chronicity : acute on chronic Qualified Code(s): I50.23 - Acute on chronic systolic ( congestive) heart failure Assessment/Plan: Improved respiratory status. Still requiring supplemental oxygen to maintain Sats >92%. Will continue to diurese and treat pneumonia. Chest xray today. HE will need home O2 but does not have a permanent address at this time. office services clerk attempting to help with post hospitalization living situation at least short term if unable to get hsi O2 to acceptable level (2) Dyspnea Qualifiers: Dyspnea type: dyspnea on exertion Qualified Code(s): R06.09 - Other forms of dyspnea Assessment/Plan: Secondary to CHF and Pneumonia. Will continue to treat underlying conditions. (3) S/P AVR Assessment/Plan: Stable Continue OAC. Follow up with cardiology as directed after discharge (4) Pneumonia Assessment/Plan: Treated with IV ABX. Anticipated him discharging today but he has hypoxemia. Will continue to treat as IP (5) CAD (coronary artery disease) Qualifiers: Coronary Disease-Associated Artery/Lesion type: [place] artery Assessment/Plan: Stable without anginal SX (7) AICD (automatic cardioverter/defibrillator) present Assessment/Plan: Will need checked as OP (8) Hypokalemia Assessment/Plan: Resolved after replacement (9) Hypoxemia Assessment/Plan: Present on admission. Not improved with treatment of Pneumonia and CHF. Will need home oxygen if discharging today. He does not have a permanent address to send equipment Plan: Continue to treat as IP. Diuresis with IV Lasix. Chest xray today. Continue nebs q6H - Current Meds Current Meds: Current Medications Generic Name Dose Route Start Last Admin Trade Name Freq PRN Reason Stop Dose Admin Albuterol/Ipratropium 3 ml 03/18/17 14:14 03/20/17 08:00 Duoneb INH 3 ml RTQID PRN Administration Shortness of Air/Wheezing Aspirin 81 mg 03/19/17 09:00 03/20/17 08:56 Ecotrin PO 81 mg DAILY JESSICA Administration Atorvastatin Calcium 80 mg 03/18/17 21:00 03/19/17 21:32 Lipitor PO 80 mg QPM JESSICA Administration Carvedilol 6.25 mg 03/17/17 21:00 03/20/17 09:02 Coreg PO 6.25 mg BID JESSICA Administration Azithromycin 500 mg/ Sodium 250 mls @ 250 mls/hr 03/18/17 10:00 03/20/17 10:15 Chloride IV 250 mls/hr DAILY@1000 JESSICA Administration Ceftriaxone Sodium 1 gm/ 100 mls @ 200 mls/hr 03/18/17 09:00 03/20/17 08:54 Sodium Chloride IV 200 mls/hr DAILY JESSICA Administration Lisinopril 5 mg 03/19/17 09:00 03/20/17 08:55 Zestril PO 5 mg DAILY JESSICA Administration Polyethylene Glycol 17 gm 03/18/17 09:00 03/20/17 10:14 Miralax PO Not Given DAILY JESSICA Sertraline HCl 100 mg 03/18/17 14:00 03/20/17 08:55 Zoloft PO 100 mg DAILY JESSICA Administration Sodium Chloride 10 ml 03/17/17 22:00 03/20/17 06:01 Normal Saline Flush 0.9% IVP 10 ml Q8HR JESSICA Administration Temazepam 15 mg 03/17/17 17:40 03/19/17 21:32 Restoril PO 15 mg QPM PRN Administration Insomnia Throat Lozenges 1 lozenge 03/17/17 23:15 03/20/17 09:17 Cepacol MM 1 lozenge Q2HR PRN Administration Throat pain Warfarin Sodium 1 mg 03/18/17 14:00 03/19/17 14:36 Coumadin PO 1 mg QDWARFARIN JESSICA Administration Warfarin Sodium 5 mg 03/19/17 14:00 03/19/17 14:35 Coumadin PO 5 mg QDWARFARIN JESSICA Administration - Lab Result Lab results reviewed: Yes Fish Bone Diagrams: 03/18/17 05:17 03/19/17 09:22 - Diagnostic Imaging Results Diagnostic Imaging Results: positive: Prelim report reviewed - Additional Planning Condition/Complexity: Stable My Orders: My Active Orders 03/19/17 14:00 Warfarin [Coumadin] 5 mg PO QDWARFARIN 03/20/17 12:31 Discharge [RC] .ONCE 03/20/17 14:14 Chest 2 View PA/LAT [XR] Routine 03/21/17 05:00 PT WITH INR [COAG] DAILYLAB 03/22/17 05:00 PT WITH INR [COAG] DAILYLAB 03/25/17 08:00 Magnesium Oxide [Mag Ox] 400 mg PO Q7D@0800 Plan Discussed with:: Patient Time Spent: 15-30 minutes Subjective - Subjective Patient Reports: Feeling Better (felling better. No PND last night. Thinks he has better breathing. Denies dyspnea at rest.) Nursing Reports: No Complaints Objective Vital Signs: Vital Signs - 24 hr 03/19/17 03/19/17 03/19/17 16:20 17:20 19:55 Temperature 36.6 C Heart Rate 68 Heart Rate [ 70 Brachial] Respiratory 16 18 Rate Blood Pressure 87/50 L 92/55 L [Right Brachial artery] O2 Saturation 89 L 94 03/19/17 03/20/17 03/20/17 21:30 06:00 08:00 Temperature 36.4 C L Heart Rate 70 Heart Rate [ 70 69 Brachial] Respiratory 16 18 Rate Blood Pressure 101/57 L 117/68 [Right Brachial artery] O2 Saturation 95 92 03/20/17 09:19 Temperature 36.5 C Heart Rate Heart Rate [ 70 Brachial] Respiratory 18 Rate Blood Pressure 98/62 [Right Brachial artery] O2 Saturation 94 Oxygen O2 Source Nasal cannula I&O (Last 24 Hrs): Intake and Output Totals x24h 03/18/17 03/19/17 03/20/17 23:59 23:59 23:59 Intake Total 1310 1770 815 Output Total 3600 2520 450 Balance -2290 -750 365 General: Alert, Oriented x3 HEENT: PERRLA, EOMI Neck: Supple, No JVD Lymphatic: no adenopathy Neuro: Alert, CN 2-12 Grossly Intact Cardiovascular: Regular rate, Normal S1, Normal S2 Respiratory: No respiratory distress, Rales Abdomen: Normal bowel sounds, Soft Extremities: No edema - Results Results: Laboratory Results WBC 3.4 x10^3/uL (4.8-10.8) L 03/18/17 05:17 RBC 5.48 10^6/uL (4.70-6.10) 03/18/17 05:17 Hgb 13.6 g/dL (14.0-18.0) L 03/18/17 05:17 Hct 43.8 % (42.0-52.0) 03/18/17 05:17 MCV 79.9 fL (80.0-94.0) L 03/18/17 05:17 MCH 24.8 pg (27.0-31.0) L 03/18/17 05:17 MCHC 31.1 g/dL (32.0-36.0) L 03/18/17 05:17 RDW 19.9 % (12.0-15.0) H 03/18/17 05:17 Plt Count 112 10^3/uL (130-450) L 03/18/17 05:17 MPV 9.2 fL (7.4-11.4) 03/18/17 05:17 Neut # 2.2 10^3/uL (1.5-6.6) 03/17/17 12:20 Lymph # 0.6 10^3/uL (1.5-3.5) L 03/17/17 12:20 [place] # 0.4 10^3/uL (0.0-1.0) 03/17/17 12:20 Eos # 0.1 10^3/uL (0.0-0.7) 03/17/17 12:20 Baso # 0.0 10^3/uL (0.0-0.1) 03/17/17 12:20 Absolute Nucleated RBC 0.00 x10^3/uL 03/17/17 12:20 Nucleated RBCs 0.0 /100WBC 03/17/17 12:20 PT 25.3 secs (9.9-12.6) H 03/20/17 05:20 INR 2.2 (0.8-1.2) H 03/20/17 05:20 Sodium 137 mmol/L (135-145) 03/19/17 09:22 Potassium 4.1 mmol/L (3.5-5.0) 03/19/17 09:22 Chloride 96 mmol/L (101-111) L 03/19/17 09:22 Carbon Dioxide 36 mmol/L (21-32) H 03/19/17 09:22 Anion Gap 5.0 (6-13) L 03/19/17 09:22 BUN 30 mg/dL (6-20) H 03/19/17 09:22 Creatinine 1.0 mg/dL (0.6-1.2) 03/19/17 09:22 Estimated GFR (MDRD) 73 (>89) L 03/19/17 09:22 Glucose 90 mg/dL (70-100) 03/19/17 09:22 Lactic Acid 1.8 mmol/L (0.5-2.2) 03/17/17 18:20 Calcium 8.2 mg/dL (8.5-10.3) L 03/19/17 09:22 Magnesium 1.7 mg/dL (1.7-2.8) 03/17/17 12:20 Total Bilirubin 2.2 mg/dL (0.2-1.0) H 03/17/17 12:20 AST 27 IU/L (10-42) 03/17/17 12:20 ALT 19 IU/L (10-60) 03/17/17 12:20 Alkaline Phosphatase 108 IU/L (42-121) 03/17/17 12:20 Troponin I 0.04 ng/mL (<0.49) 03/17/17 12:20 B-Natriuretic Peptide 1301 pg/mL (5-100) H 03/17/17 12:20 Total Protein 6.5 g/dL (6.7-8.2) L 03/17/17 12:20 Albumin 2.9 g/dL (3.2-5.5) L 03/17/17 12:20 Globulin 3.6 g/dL (2.1-4.2) 03/17/17 12:20 Albumin/Globulin Ratio 0.8 (1.0-2.2) L 03/17/17 12:20 Lipase 26 U/L (22-51) 03/17/17 12:20
--- NOTE | 2017-03-20 14:56 | XRAY Preliminary Report ---
Exam: XR Chest 2 View PA/LAT IMPRESSION: Interval improvement in congestive changes. Stable effusions. [facility] SITE ID: [id number]
--- NOTE | 2017-03-20 14:59 | XRAY Report ---
EXAM: CHEST RADIOGRAPHY EXAM DATE: 03/20/2017 02:43 PM. CLINICAL HISTORY: Hypoxia. COMPARISON: 03/17/2017. TECHNIQUE: 2 views. FINDINGS: Lungs/Pleura: Pulmonary vascular congestion has decreased. Effusions appear stable. No pneumothorax. Mediastinum: Stable cardiomegaly, postoperative changes, and pacemaker. Other: None. IMPRESSION: Interval improvement in congestive changes. Stable effusions. [facility] Referring Provider Line: [phone] SITE ID: [id number]
[2017-03-20] MEDS: FUROSEMIDE 40 MG/4 ML VIAL IVP SCH (15:58)
[2017-03-20] MEDS: ATORVASTATIN 40 MG TABLET PO SCH (21:44)
[2017-03-20] MEDS: TEMAZEPAM 15 MG CAPSULE PO PRN (21:45)
[2017-03-21] MEDS: SODIUM CHLORIDE FLUSH 0.9% 10 ML SYRINGE IVP SCH ×2 (06:33→13:29)
[2017-03-21] MEDS: FUROSEMIDE 40 MG/4 ML VIAL IVP SCH ×2 (06:33→13:29)
[2017-03-21 06:34] LABS: INR 2.4 (0.8-1.2); PT - PROTHROMBIN TIME 26.9 secs (9.9-12.6)
[2017-03-21] MEDS: BENZOCAINE/MENTHOL LOZENGE MM PRN ×2 (08:03→13:34)
[2017-03-21 09:03] LABS: HGB - HEMOGLOBIN 12.8 g/dL (14.0-18.0); MEAN CORPUSCULAR HEMOGLOBIN 24.8 pg (27.0-31.0); MEAN CORPUSCULAR HGB CONC 31.2 g/dL (32.0-36.0); MEAN CORPUSCULAR VOLUME 79.4 fL (80.0-94.0); MEAN PLATELET VOLUME 9.9 fL (7.4-11.4); RED BLOOD COUNT 5.17 10^6/uL (4.70-6.10); RED CELL DISTRIBUTION WIDTH 20.3 % (12.0-15.0); WHITE BLOOD COUNT 5.2 x10^3/uL (4.8-10.8)
[2017-03-21 09:05] LABS: CALCIUM 8.3 mg/dL (8.5-10.3); POTASSIUM 4.1 mmol/L (3.5-5.0)
[2017-03-21] MEDS: IPRATROPIUM/ALBUTEROL 3 ML NEB INH PRN (09:15)
[2017-03-21] MEDS: POLYETHYLENE GLYCOL 3350 17 GM PACKET PO SCH (10:41)
[2017-03-21] MEDS: ASPIRIN EC 81 MG TABLET PO SCH (10:47)
[2017-03-21] MEDS: LISINOPRIL 5 MG TABLET PO SCH (10:47)
[2017-03-21] MEDS: CARVEDILOL 3.125 MG TABLET PO SCH (10:47)
[2017-03-21] MEDS: SERTRALINE 50 MG TABLET PO SCH (10:47)
[2017-03-21] MEDS: cefTRIAXone 1 GM in SODIUM CHLORIDE 0.9% MINIBAG 100 ML IV SCH (10:47)
[2017-03-21] MEDS: AZITHROMYCIN INJ 500 MG in SODIUM CHLORIDE 0.9% 250 ML IV SCH (11:20)
[2017-03-21] MEDS: WARFARIN 5 MG TABLET PO SCH (13:29)
[2017-03-21] MEDS: WARFARIN 1 MG TABLET PO SCH (13:29)
[2017-03-21 18:22] VITALS: BP 90/59
--- NOTE | 2017-03-21 21:40 | DISCHARGE SUMMARY ---
DATE OF ADMISSION: 03/17/2017 DATE OF DISCHARGE: 03/21/2017 ADMITTING DIAGNOSES 1. Congestive heart failure. a. Acute on chronic. b. Ischemic etiology secondary to systolic LV failure. 2. Pneumonia. 3. Dyspnea. 4. Coronary artery disease. 5. Cardiomyopathy. 6. Automatic implantable cardioverter defibrillator in situ. DISCHARGE DIAGNOSES 1. Congestive heart failure. a. Acute on chronic heart failure exacerbation. b. Systolic heart failure secondary to ischemic cardiomyopathy with left ventricular ejection fractio n of 20% to 25%. c. Improved with diuresis. 2. Pneumonia. He is status post treatment with IV antibiotics with resolution. a. Suspect primary issues may be related to heart failure. 3. Dyspnea secondary to above. 4. Coronary artery disease. a. No anginal symptoms. b. The patient needs followup with Cardiology. 5. Ischemic cardiomyopathy. a. Left ventricular ejection fraction 20% to 25%. b. Patient currently on low dose medication including Carvedilol 6.25 mg b.i.d. and Lisinopril 5 mg d aily. c. Patient is not on goal directed medical therapy and will need followup with Cardiology to further titrate medications. 6. Automatic implantable cardioverter defibrillator in situ. a. Unclear when last ICD interrogation took place. The patient should be seen for this. 7. Hypoxemia. a. Resolved prior to admission. b. Suspect secondary to pulmonary infection and congestive heart failure along with poor pulse oximet ry reading due to peripheral blood flow and cold hands. 8. Hypokalemia - present on admission. a. Resolved with replacement. 9. Chronic obstructive pulmonary disease with exacerbation secondary to congestive heart failure and pneumonia. BRIEF HISTORY OF PRESENT ILLNESS: For specifics, please see that on admission. This is a gentleman wi th a 5-day history of cough and productive sputum, also with symptoms of weakness and fatigue. The roger billy complains of PND, orthopnea and dyspnea, along with his gout symptoms, presented for further ev aluation. Initially treated in the emergency department. Chest x-ray suggests congestive heart failur e with possible underlying pneumonia. White blood cell count was within normal limits and he was afeb rile. COURSE IN CENTER: The patient was admitted to the medical floor. The patient was treated empirically for pneumonia due to his presentation, started on IV antibiotics of azithromycin and Rocephin. The roger billy tolerated medications without adverse side effects. He seemed to improve, but slowly. He was co ntinuing to complain of PND and orthopnea despite improvement in his other symptoms associated with i nfection. We started him on IV Lasix and he began feeling better. His PND and orthopnea had improved significantly and he was able to sleep lying down without much difficulty. The patient was diuresed a pproximately 6 liters during hospitalization. Initial plan had been to discharge him home. There is c oncern for followup, as the patient has been noncompliant in the past. The [facility] also [facility] staff that he was homeless, living in his car, but occasionally would say he had a boat to [place] on. This also changed to a cabin and various plans for travel cross country to either live in a [facility] type establishment or just to travel. The patient was set to be discharged on 2016; however, there was concern raised by Respiratory Therapy that his oxygen saturations were 85%. He was continued in the hospital for an additional day, given more IV diuretic and monitored. Upon in itial evaluation on the morning of 03/21/2017, his oxygen saturations were 85%. The nurse noted that his hands were cold and changed probe placement to the right side. His oxygen saturation then quickly improved to 95%. This had been on room air for greater than 1 hour. We continued to monitor him in [facility] for several hours because the patient was concerned that he would be discharged without o xygen and someone had told him that he should not do that. After 4 hours on room air, his oxygen satu rations remained at 95%. Of note, the patient remained asymptomatic during this time with no dyspnea, dyspnea on exertion, his PND and orthopnea had resolved. DISCHARGE PHYSICAL EXAMINATION GENERAL: No acute distress. HEENT: Normocephalic, atraumatic. Pupils equal, round, react to light. EOMs intact. NECK: Supple. No JVD elevation. CHEST: Regular respiratory rate and effort, a few wheezes and crackles in the bases present. CARDIOVASCULAR: Regular rate. Systolic ejection murmur present. No rubs or gallops appreciated. ABDOMEN: Benign. EXTREMITIES: Without edema, deformities, discolorations or ulcerations. Pulses were palpable bilatera lly. NEUROLOGIC: Cranial nerves 2-12 grossly intact. PSYCHIATRIC: Mood and affect appropriate. IMAGING STUDIES: Initial chest x-ray 03/17/2017: Cardiomegaly with pulmonary vascular congestion and left greater than right pleural effusions, indicating congestive heart failure. Bibasilar opacities w hich may represent atelectasis or edema. Repeat chest x-ray 03/20/2017: Interval improvement in congestive changes, stable effusions. LABORATORY TESTING DATE OF DISCHARGE: Sodium 136, potassium 4.1, chloride 97, CO2 of 31, BUN 32, crea tinine 1.0, glucose 83. White blood cell count 5.2, hemoglobin 12.8, hematocrit 41.0, platelets 124. DISPOSITION: The patient will be discharged home. FOLLOWUP 1. Follow up with Lilliam Eid, his primary care provider. 2. The patient should follow up with Cardiology in 1-2 weeks. Thank you for the opportunity to participate in the care of this patient and all his cardiovascular a nd medical needs. JOB #: [id number] EXT JOB #:[id number]
[2017-03-25] MEDS ORDERED: MAGNESIUM OXIDE 400 MG TABLET PO SCH (08:00)
== END 2017-03-21 17:00 | disposition home or self-care (01) | DRG 291 ==
LOC: ED 11:47 → MS 17:40
PROVIDERS: ADMIT Physician Assistant; ATTEND Physician Assistant
DX: I11.0 Hypertensive heart disease with heart failure (principal); J44.9 Chronic obstructive pulmonary disease, unspecified; J18.9 Pneumonia, unspecified organism; Z63.5 Disruption of family by separation and divorce; J44.0 Chronic obstructive pulmonary disease with (acute) lower respiratory infection; Z79.01 Long term (current) use of anticoagulants; J44.1 Chronic obstructive pulmonary disease with (acute) exacerbation; I50.23 Acute on chronic systolic (congestive) heart failure; I25.10 Atherosclerotic heart disease of native coronary artery without angina pectoris; I25.5 Ischemic cardiomyopathy; Z95.810 Presence of automatic (implantable) cardiac defibrillator; R09.02 Hypoxemia; E87.6 Hypokalemia; I48.91 Unspecified atrial fibrillation; E78.00 Pure hypercholesterolemia, unspecified; I25.2 Old myocardial infarction; Z59.0 Homelessness; Z95.2 Presence of prosthetic heart valve; Z91.14 Patient's other noncompliance with medication regimen
CPT/HCPCS: 36415; 71020; 80048; 80053; 83605; 83690; 83735; 83880; 84484; 85025; 85610; 93005; 93010; 94640; 96365; 96375; 99284; 99285

== ENCOUNTER 2018-08-17 12:52 | Outpatient (CLI) | payer MEDICARE, OTHER | END 2018-08-17 12:53 | disposition EMS.NT | LOC: EMS 12:52 | PROVIDERS: ATTEND Surgery | DX: Z03.89 Encounter for observation for other suspected diseases and conditions ruled out (principal) ==

== ENCOUNTER 2022-07-10 14:29 | Emergency (ER) | payer MEDICARE, OTHER ==
--- NOTE | 2022-07-10 16:29 | XRAY Report ---
PROCEDURE: Toe(s) RT INDICATIONS: Trauma with right 3rd toe pain. TECHNIQUE: Three views of the right 3rd toe(s) acquired. COMPARISON: None. FINDINGS: No acute fracture identified. Remote fracture of the 5th proximal phalanx. Hammertoe deformities of t he 3rd, 4th, and 5th digits. 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 IMPRESSION: No acute fracture demonstrated. Reviewed by: Otto Long MD on 07/10/2022 4:28 PM PDT Approved by: Otto Long MD on 07/10/2022 4:28 PM PDT Station ID: [id number]
[2022-07-10] MEDS ORDERED: TETANUS/DIPHTHERIA/PERTUSSIS 0.5 ML SYRINGE IM ONE (18:01)
--- NOTE | 2022-07-10 18:02 | ED Physician Documentation ---
History of Present Illness - Stated complaint Stated Complaint: R TOENAIL INJ - Chief complaint Chief Complaint: Ext Problem - Additonal information Additional information: 81-year-old male presents emergency department for evaluation of right middle toe trauma. He has a long overgrown hypertrophic nails and accidentally stubbed his nail last night when walking. The nail bent back and he had some bleeding. He is on Eliquis. Now he has tenderness of the toe and minimal swelling. Review of Systems Constitutional: reports: Reviewed and negative Cardiac: reports: Reviewed and negative Respiratory: reports: Reviewed and negative Skin: reports: Lesions PD PAST MEDICAL HISTORY - Past Medical History Cardiovascular: Congestive heart failure, Valve disorder Respiratory: COPD Endocrine/Autoimmune: None GI: None : None HEENT: None Psych: Depression Derm: None - Past Surgical History Cardiovascular: Valve replacement, AICD, Cardiac catheterization - Present Medications Home Medications: Ambulatory Orders Medication Instructions Recorded Confirmed Acetaminophen [Tylenol] 650 mg PO Q4H PRN 03/18/17 03/18/17 Aspirin [Aspirin EC] 81 mg PO DAILY 03/18/17 03/18/17 Furosemide [Lasix] 20 mg PO DAILY 03/18/17 03/18/17 Magnesium Oxide [Mag Ox] 400 mg PO Q7D@0800 03/18/17 03/18/17 Melatonin 6 mg PO QPM 03/18/17 03/18/17 Sertraline HCl [Zoloft] 100 mg PO DAILY 03/18/17 03/18/17 Warfarin Sodium [Coumadin] 6 mg PO QDWARFARIN 03/18/17 03/18/17 Amox/Clav 875/125 [Augmentin] 1 each PO Q12H #14 tablet 03/20/17 Atorvastatin Calcium [Lipitor] 80 mg PO QPM #30 tablet 03/20/17 Carvedilol [Coreg] 6.25 mg PO BID #60 tablet 03/20/17 lisinopriL [Zestril] 5 mg PO DAILY #30 tablet 03/20/17 - Allergies Allergies/Adverse Reactions: Allergies Allergy/AdvReac Type Severity Reaction Status Date / Time No Known Drug Allergies Allergy Verified 07/10/22 14:51 - Social History Does the pt smoke?: No Smoking Status: Never smoker - POLST POLST Status: Full Code PD ED PE EXPANDED - Extremities Extremities: Right toe(s) (Right middle toe is mildly erythematous. The nail itself is mostly adherent to the nailbed there is a little bit of bleeding underneath it. Hypertrophic nail was trimmed back flush to the skin.) Results - Vitals Vitals: Vital Signs - 24 hr 07/10/22 14:46 Temperature 36.5 C Heart Rate 78 Respiratory 18 Rate Blood Pressure 120/64 O2 Saturation 95 Oxygen O2 Source Room air - Rads (name of study) right toes Radiology: Final report received (No acute fracture) PD MEDICAL DECISION MAKING - ED course Complexity details: reviewed results, considered differential, d/w patient ED course: Well-appearing 81-year-old male presents emergency department for evaluation of trauma to the right Middle toe after stubbing it and pulling back the hypertrophic nail. I did offer full nail removal though he declined that today. He simply requested that I trimmed the overgrowth and overburden of the nail back which I was able to accommodate. Tetanus was updated today. An x-ray does not reveal any fracture. We discussed routine care to include bacitracin or Neosporin to the cuticle edges. Emergent return precautions were discussed for worsening symptoms or concerns of infection Departure - Departure Disposition: 01 Home, Self Care Clinical Impression: Toe contusion Qualifiers: Encounter type: initial encounter Toe: lesser toe Damage to nail status: with damage Laterality: right Qualified Code(s): S90.221A - Contusion of right lesser toe(s) with damage to nail, initial encounter Nail avulsion, toe Qualifiers: Encounter type: initial encounter Qualified Code(s): S91.209A - Unspecified open wound of unspecified toe(s) with damage to nail, initial encounter Condition: Stable Record reviewed to determine appropriate education?: Yes Comments: Chato was seen today in the emergency department because you stubbed your toe yesterday and you avulsed or pulled back your middle nail. This was trimmed back. I did offer removal but he declined that today. The x-ray does not show a fracture. In general I would expect this to continue to heal over the next several weeks. You can apply a simple bandage as well as bacitracin or Neosporin to the cuticle edges. If at any point you have concerns of infection such as fevers, redness increased pain or milky drainage please return immediately to the ER for repeat evaluation. We updated your tetanus today and it should be current for the next 7 to 10 years.
[2022-07-10 18:17] VITALS: BP 135/86
== END 2022-07-10 18:17 | disposition home or self-care (01) ==
LOC: ED 14:29
DX: S90.221A Contusion of right lesser toe(s) with damage to nail, initial encounter (principal); S91.209A Unspecified open wound of unspecified toe(s) with damage to nail, initial encounter; W22.8XXA Striking against or struck by other objects, initial encounter; Y93.01 Activity, walking, marching and hiking; L60.2 Onychogryphosis
CPT/HCPCS: 11719; 90471; 99281; 99283